=== PATIENT | female | born 1970 | race Hispanic/Latino ===

== ENCOUNTER 2022-04-19 19:10 | Emergency (ER) | payer OTHER ==
[~2022-04-19] VITALS: Ht 157.5 cm; Wt 59.9 kg
[2022-04-19 20:28] VITALS: BP 121/71
[2022-04-19] MEDS ORDERED: CYCLOBENZAPRINE HCL 10 MG TABLET PO ONE (22:30)
[2022-04-19] MEDS ORDERED: DEXAMETHASONE 4 MG TAB PO SCH (22:30)
[2022-04-19] MEDS ORDERED: DEXA6TAB7 PO (22:37)
[2022-04-19] MEDS ORDERED: CYCL10TA16 PO (22:37)
== END 2022-04-19 22:58 | disposition home or self-care (01) ==
LOC: EDH 19:10
DX: M54.16 Radiculopathy, lumbar region (principal); Z79.52 Long term (current) use of systemic steroids
CPT/HCPCS: 72100; 99283; J8540